=== PATIENT | female | born 1955 | race Caucasian/White ===

== ENCOUNTER 2018-07-28 21:34 | Emergency (ER) | payer MEDICAID, OTHER ==
[2018-07-29] MEDS: DIPHTH/TET/ACEL PERTUSS (ADULT) 0.5 ML VIAL IM* (01:01)
[2018-07-29] MEDS ORDERED: LIDOCAINE 1%/EPI (MDV) 50 ML INJ INJ (01:30)
[2018-07-29] MEDS: BACITRACIN 0.9 GM OINT TOP (02:10)
[2018-07-29] MEDS: LIDOCAINE 1%/EPI (1:100,000) (MDV) 20 ML INJ (02:20)
== END 2018-07-29 02:27 | disposition home or self-care (01) ==
LOC: FTE 21:34
DX: S01.81XA Laceration without foreign body of other part of head, initial encounter (principal); W01.190A Fall on same level from slipping, tripping and stumbling with subsequent striking against furniture, initial encounter; Y92.9 Unspecified place or not applicable; Z23 Encounter for immunization
CPT/HCPCS: 70450; 90471; 90715; 99284-25